=== PATIENT | female | born 1965 ===

== ENCOUNTER → 2020-08-13 09:20 | Outpatient (BNVA) | payer OTHER, SELFPAY | PROVIDERS: PCP Internal Medicine; Referring Provider Internal Medicine; Visit Provider Student in an Organized Health Care Education/Training Program | DX: Z76.89 Persons encountering health services in other specified circumstances (principal) ==

== ENCOUNTER → 2020-12-17 09:28 | Outpatient (BNVA) | payer OTHER, SELFPAY | PROVIDERS: PCP Internal Medicine; Visit Provider Student in an Organized Health Care Education/Training Program ==

== ENCOUNTER → 2021-04-15 09:34 | Outpatient (BNVA) | payer OTHER, SELFPAY | PROVIDERS: PCP Internal Medicine; Visit Provider Student in an Organized Health Care Education/Training Program ==

== ENCOUNTER → 2021-08-12 09:17 | Outpatient (BNVA) | payer OTHER, SELFPAY | PROVIDERS: PCP Internal Medicine; Visit Provider Nurse Practitioner Family ==

== ENCOUNTER → 2021-12-16 09:31 | Outpatient (BNVA) | payer OTHER, SELFPAY | PROVIDERS: PCP Internal Medicine; Visit Provider Nurse Practitioner Family | DX: M05.9 Rheumatoid arthritis with rheumatoid factor, unspecified (principal); Z79.899 Other long term (current) drug therapy | CPT/HCPCS: 99212 ==

== ENCOUNTER → 2022-10-06 10:37 | Outpatient (BNVA) | payer OTHER, SELFPAY | PROVIDERS: PCP Internal Medicine; Visit Provider Nurse Practitioner Family | DX: Z13.89 Encounter for screening for other disorder (principal) ==

== ENCOUNTER → 2023-03-29 10:12 | Outpatient (BNVA) | payer OTHER, SELFPAY | PROVIDERS: PCP Internal Medicine; Visit Provider Internal Medicine Rheumatology | DX: M05.9 Rheumatoid arthritis with rheumatoid factor, unspecified (principal); Z79.899 Other long term (current) drug therapy ==

== ENCOUNTER 2023-08-10 08:24 | Outpatient (AMB) | payer OTHER, SELFPAY ==
--- NOTE | 2023-08-10 08:27 | MHC.OFFVIS ---
Intake Vital Signs 08/10/23 08:30 Height 4 ft 11 in Weight 126 lb 8.725 oz BMI 25.6 BP 102/70 Blood Pressure Location Lt brachial Position Sitting Pulse 70 Pulse Source Pulse Oximeter Pulse Oximetry (%) 97 Oxygen Delivery Method Room Air Intake Visit Reasons: RA Intake Note: Patient presents today to follow up on test results and RA. 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 Accompanied by: Self / Same As Patient Allergies No Known Allergies Allergy (Verified 08/10/23 08:28) Medication List - Last Reconciled 08/10/23 by Gordon Caldwell MD abatacept (Orencia) 125 mg subcut QWEEK betamethasone, augmented 0.05 % 1 appl topical BID clobetasol 0.05% 1 appl topical BID PRN clobetasol 0.05% topical diclofenac sodium 1% (Voltaren) 2 grams topical QID PRN folic acid 1 mg PO DAILY ibuprofen 600 mg PO Q8H PRN methotrexate sodium 10 mg (4 x 2.5 mg) PO QWEEK mometasone 0.1% 1 appl topical DAILY PRN triamcinolone acetonide 0.1% 1 appl topical BID-TID HPI HPI Comments History of Present Illness Details The patient returns for evaluation of her rheumatoid arthritis. She remains on methotrexate 10 mg weekly, folic acid 1 mg daily, and Orencia 125 mg subcutaneously every week. She has a 600 mg ibuprofen available but says she rarely needs it. She reports no problem with the injections. She does not think she has had any side effects with the medications. Joint pain seems controlled without significant pain anywhere. She has limited motion in the right wrist that has been a longstanding issue because of the active disease in the past. She had lab work done at the end of June that was normal. COUNTS INCLUDE 234 BEDS AT THE [facility] Medical History Seropositive rheumatoid arthritis Family History Mother Rheumatoid arthritis Social History Household Members: Spouse Housing: House Alcohol intake: current Alcohol intake frequency: holidays/special occasions only Alcohol type: wine Patient Tobacco Use Status: Never used Tobacco e-Cigarette/Vaping Use: Never Used Review of Systems Const Details: Negative for appetite change, weight change, fever, chills, malaise and fatigue Eyes Details: Negative for vision change, dry eyes,headaches and dizziness ENT Details: Negative for hearing change, tinnitus, oral ulcer, nose bleeds and oral dryness. Card Details: Negative chest pain, edema and syncope Resp Details: Negative for SOB, cough and wheezing GI Details: Negative indigestion/heartburn, nausea, abdominal pain, bowel changes, diarrhea, constipation and bloody stool. Endo Details: Negative for polyuria and polydypsia Neo/Lymph Details: Negative for excessive bruising or bleeding. Physical Exam APPEARANCE: Patient in no acute distress EYES no redness, pupils equal and reactive to light, eyelids normal JOINT EXAM: Cervical Spine:? Full range of motion without pain; no tenderness. Thoracic Spine:? No scoliosis.? No tenderness on palpation. Lumbar Spine:? Alignment normal.? Full range of motion without pain, no tenderness. Hands:? Normal pain-free range of motion. There is some slight swelling at the 3rd MCP in both hands but there is no tenderness. There is no flexor tendon triggering, thenar atrophy or sensory loss in either hand. Wrists:? LEFT: Normal pain-free range of motion without tenderness, swelling, increased warmth or erythema. ? RIGHT: Unable to flex or extend the wrist. Slightly tender with attempts at flexion or with pressure. No swelling, increased warmth or erythema (chronically fused for 20+ years). Elbows: Normal pain-free range of motion without tenderness, swelling, increased warmth or erythema. Shoulders:?? Full range of motion without pain. No tenderness, weakness, swelling, increased warmth or erythema. Hips: Full range of motion without pain. Hip bursa: No tenderness. Knees:?? Normal pain-free range of motion without tenderness, swelling, increased warmth or erythema.? There is no effusion or crepitation Ankles: Normal pain-free range of motion without tenderness, swelling, increased warmth or erythema. Feet: Normal pain-free range of motion with slight 1st MTP bony enlargement but no tenderness, soft tissue swelling, increased warmth or erythema. ? Results Reviewed Results Reviewed: June lab work from [facility] reference labs: White count 6000, hemoglobin 12.6, hematocrit 40.1, creatinine 0.7, AST 19, ALT 9, CRP 0.5 Assessment & Plan Assessment & Plan (1) [facility] (current) use of immunosuppressive biologic: Code(s): Z79.620 - [facility] (current) use of immunosuppressive biologic (2) Seropositive rheumatoid arthritis: Code(s): M05.9 - Rheumatoid arthritis with rheumatoid factor, unspecified Plan Rheumatoid arthritis with good control of synovitis with current treatment. 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 The blood work looks good so we will continue with current dose of methotrexate and Orencia. Lab work would be due again before the next visit in 3-4 months. She was provided with printed lab slips to do at a laboratory closer to her home. Medications: Refilled methotrexate sodium 10 mg (4 x 2.5 mg) PO QWEEK 16 tabs 3RF M05.9 - Rheumatoid arthritis with rheumatoid factor, unspecified Coding Level of Care Code Est Pt Level 3 (00307) Diagnoses [facility] (current) use of immunosuppressive biologic Z79.620 Seropositive rheumatoid arthritis M05.9
[2023-08-10 08:30] VITALS: BP 102/70; PULSE 70; O2SAT 97; BMI 25.6
== END 2023-08-10 08:53 | disposition home or self-care (01) ==
PROVIDERS: PCP Internal Medicine; Visit Provider Internal Medicine Rheumatology
DX: M05.79 Rheumatoid arthritis with rheumatoid factor of multiple sites without organ or systems involvement (principal); Z79.620 Long term (current) use of immunosuppressive biologic; Z79.631 Long term (current) use of antimetabolite agent
CPT/HCPCS: 99213

== ENCOUNTER → 2023-08-10 08:24 | Outpatient (BNVA) | payer OTHER, SELFPAY | PROVIDERS: PCP Internal Medicine; Visit Provider Internal Medicine Rheumatology ==

== ENCOUNTER 2023-12-14 09:51 | Outpatient (AMB) | payer OTHER, SELFPAY ==
[2023-12-14 09:57] VITALS: BP 122/74; PULSE 58; O2SAT 99; BMI 26.2
--- NOTE | 2023-12-14 09:57 | MHC.OFFVIS ---
Intake Vital Signs 12/14/23 09:57 Height 4 ft 11 in Weight 129 lb 13.636 oz BMI 26.2 BP 122/74 Blood Pressure Location Rt brachial Position Sitting Pulse 58 Pulse Source Pulse Oximeter Pulse Oximetry (%) 99 Oxygen Delivery Method Room Air Intake Visit Reasons: ra with Dr. Joel Intake Note: Patient last seen by Dr Caldwell on 08/10/23 presents today for follow up and test results. 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 Accompanied by: Self / Same As Patient Allergies No Known Allergies Allergy (Verified 12/14/23 10:01) Medication List - Last Reconciled 12/14/23 by Alina Gooden MD abatacept (Orencia) 125 mg subcut QWEEK betamethasone, augmented 0.05 % 1 appl topical BID clobetasol 0.05% 1 appl topical BID PRN clobetasol 0.05% topical diclofenac sodium 1% (Voltaren) 2 grams topical QID PRN folic acid 1 mg PO DAILY ibuprofen 600 mg PO Q8H PRN methotrexate sodium 10 mg (4 x 2.5 mg) PO QWEEK mometasone 0.1% 1 appl topical DAILY PRN triamcinolone acetonide 0.1% 1 appl topical BID-TID HPI HPI Comments History of Present Illness Details 58-year-old female with seropositive RA returns for follow-up. This is her 1st visit with me. She was last seen by Dr. Caldwell 07/2023. She states that she is doing quite well overall. Denies any joint pain or swelling. Denies any unintentional weight loss. Denies any cough or shortness of breath. She remains on Orencia 125 mg weekly, methotrexate 10 mg weekly and folic acid 1 mg daily. [facility] Medical History Seropositive rheumatoid arthritis Family History Mother Rheumatoid arthritis Social History Household Members: Spouse Housing: House Alcohol intake: current Alcohol intake frequency: holidays/special occasions only Alcohol type: wine Patient Tobacco Use Status: Never used Tobacco e-Cigarette/Vaping Use: Never Used Review of Systems Const Denies fever(s) and Denies weight loss Card Denies dyspnea Resp Denies cough and Denies dyspnea Musc Denies arthralgias, Denies joint swelling and Denies stiffness Physical Exam Vital Signs: Last Vital Signs Pulse 58 12/14/23 09:57 BP 122/74 12/14/23 09:57 Pulse Ox 99 12/14/23 09:57 Oxygen Delivery Method Room Air 12/14/23 09:57 BMI result Body Mass Index 26.2 Const General: cooperative, healthy appearing and comfortable Nutritional Appearance: overweight Orientation/consciousness: patient oriented x3 Limitations: no limitations HEENT Head: Yes normocephalic and Yes atraumatic Mouth: moist mucous membranes Resp Effort & Inspection: normal respiratory effort and able to speak in complete sentences Auscultation: clear to auscultation bilaterally Cardio Rate: regular rate Rhythm: regular rhythm Skin Other: Dry skin both hands Neuro General: patient oriented x3 Extrem Other: No active synovitis Significantly limited flexion and extension of right wrist but no swelling Assessment & Plan Assessment & Plan (1) Seropositive rheumatoid arthritis: Comment: Onset around 1990 -ve RF ++CCP - methotrexate initially than Humira added 2004 effective DC around 2014 due to psoriasis so Orencia was started in 2014 effective MTX throughout Code(s): M05.9 - Rheumatoid arthritis with rheumatoid factor, unspecified Plan: 58-year-old female with seropositive RA returns for follow-up. This is her 1st visit with me. She used to follow-up with Dr. Caldwell. She is doing quite well with no active synovitis. Inflammatory markers normal. Continue current meds. Orencia 125 mg weekly, methotrexate 10 mg weekly, folic acid 1 mg daily Labs before next visit in 4 months (2) half-way (current) use of immunosuppressive biologic: Code(s): Z79.620 - half-way (current) use of immunosuppressive biologic Plan I spent 30 minutes reviewing patient's chart, evaluating patient, ordering diagnostic workup, counseling patient and documenting in the chart Orders: Orders C Reactive Protein 4 Months M05.9 - Rheumatoid arthritis with rheumatoid factor, unspecified, Z79.620 - half-way (current) use of immunosuppressive biologic, Z79.899 - Other skilled nursing (current) drug therapy Erythrocyte Sedimentation Rate 4 Months M05.9 - Rheumatoid arthritis with rheumatoid factor, unspecified, Z79.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 Panel 4 Months M05.9 - Rheumatoid arthritis with rheumatoid factor, unspecified, Z79.620 - half-way (current) use of immunosuppressive biologic, Z79.899 - Other long term care phlebotomist (current) drug therapy T Spot TB 4 Months Z11.7 - Encounter for testing for latent tuberculosis infection Medications: Refilled methotrexate sodium 10 mg (4 x 2.5 mg) PO QWEEK 16 tabs 3RF M05.9 - Rheumatoid arthritis with rheumatoid factor, unspecified Coding Level of Care Code Est Pt Level 4 (69335) Diagnoses Seropositive rheumatoid arthritis M05.9 half-way (current) use of immunosuppressive biologic Z79.620
== END 2023-12-14 10:28 | disposition home or self-care (01) ==
PROVIDERS: PCP Internal Medicine; Visit Provider Student in an Organized Health Care Education/Training Program
DX: M05.79 Rheumatoid arthritis with rheumatoid factor of multiple sites without organ or systems involvement (principal); Z79.620 Long term (current) use of immunosuppressive biologic
CPT/HCPCS: 99214

== ENCOUNTER → 2023-12-14 09:51 | Outpatient (BNVA) | payer OTHER, SELFPAY | PROVIDERS: PCP Internal Medicine; Visit Provider Student in an Organized Health Care Education/Training Program ==

== ENCOUNTER 2024-04-18 10:06 | Outpatient (AMB) | payer OTHER, SELFPAY ==
--- NOTE | 2024-04-18 10:20 | MHC.OFFVIS ---
Vital Signs 04/18/24 10:24 Height 4 ft 11 in Weight 129 lb 10.109 oz BMI 26.2 BP 124/70 Blood Pressure Location Lt brachial Position Sitting Pulse 59 Pulse Source Pulse Oximeter Pulse Oximetry (%) 99 Oxygen Delivery Method Room Air Intake Visit Reasons: RA/lm Intake Note: Patient last seen on 12/14/2023 present today for follow up and test results. 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 Accompanied by: Self / Same As Patient Allergies No Known Allergies Allergy (Verified 04/18/24 10:25) Medication List - Last Reconciled 04/18/24 by Alina Gooden MD betamethasone, augmented 0.05 % 1 appl topical BID clobetasol 0.05% 1 appl topical BID PRN clobetasol 0.05% topical diclofenac sodium 1% (Voltaren) 2 grams topical QID PRN folic acid 1 mg PO DAILY ibuprofen 600 mg PO Q8H PRN methotrexate sodium 10 mg (4 x 2.5 mg) PO QWEEK mometasone 0.1% 1 appl topical DAILY PRN Orencia (abatacept) 125 mg subcut QWEEK NS triamcinolone acetonide 0.1% 1 appl topical BID-TID HPI Comments Details: 59-year-old female with seropositive RA returns for follow-up. She states that she is doing quite well overall. Denies any joint pain or swelling. Denies any unintentional weight loss. No recent infections. Denies any cough or shortness of breath. She remains on Orencia 125 mg weekly, methotrexate 10 mg weekly and folic acid 1 mg daily. [facility] Medical History Seropositive rheumatoid arthritis Family History Mother Rheumatoid arthritis Social History Household Members: Spouse Housing: House Alcohol intake: current Alcohol intake frequency: holidays/special occasions only Alcohol type: wine Patient Tobacco Use Status: Never used Tobacco e-Cigarette/Vaping Use: Never Used Review of Systems Const Denies fever(s) and Denies weight loss Card Denies dyspnea Resp Denies cough and Denies dyspnea Musc Denies arthralgias, Denies joint swelling and Denies stiffness Physical Exam Vital Signs: Last Vital Signs Pulse 59 04/18/24 10:24 BP 124/70 04/18/24 10:24 Pulse Ox 99 04/18/24 10:24 Oxygen Delivery Method Room Air 04/18/24 10:24 BMI result Body Mass Index 26.2 Const General: cooperative, healthy appearing and comfortable Nutritional Appearance: overweight Orientation/consciousness: patient oriented x3 Limitations: no limitations HEENT Head: Yes normocephalic and Yes atraumatic Mouth: moist mucous membranes Resp Effort & Inspection: normal respiratory effort and able to speak in complete sentences Auscultation: clear to auscultation bilaterally Cardio Rate: regular rate Rhythm: regular rhythm Skin Other: Dry skin both hands Neuro General: patient oriented x3 Extrem Other: No active synovitis Significantly limited flexion and extension of right wrist but no swelling Assessment & Plan Assessment & Plan (1) Seropositive rheumatoid arthritis: Comment: Onset around 1990 -ve RF ++CCP - methotrexate initially than Humira added 2004 effective DC around 2014 due to psoriasis so Orencia was started in 2014 effective MTX throughout Code(s): M05.9 - Rheumatoid arthritis with rheumatoid factor, unspecified Category: Medical Plan: 59-year-old female with seropositive RA returns for follow-up. She is doing quite well with no active synovitis. Continue current meds. Orencia 125 mg weekly, methotrexate 10 mg weekly, folic acid 1 mg daily. Patient did blood work last week but it has not been sent to us. 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
[2024-04-18 10:24] VITALS: BP 124/70; PULSE 59; O2SAT 99; BMI 26.2
== END 2024-04-18 10:54 | disposition home or self-care (01) ==
PROVIDERS: PCP Internal Medicine; Visit Provider Student in an Organized Health Care Education/Training Program
DX: M05.79 Rheumatoid arthritis with rheumatoid factor of multiple sites without organ or systems involvement (principal); Z79.620 Long term (current) use of immunosuppressive biologic
CPT/HCPCS: 99214

== ENCOUNTER → 2024-04-18 10:06 | Outpatient (BNVA) | payer OTHER, SELFPAY | PROVIDERS: PCP Internal Medicine; Visit Provider Student in an Organized Health Care Education/Training Program ==

== ENCOUNTER 2024-09-18 10:21 | Outpatient (AMB) | payer OTHER, SELFPAY ==
--- NOTE | 2024-09-18 10:25 | MHC.OFFVIS ---
Vital Signs 09/18/24 10:29 Height 4 ft 11 in Weight 131 lb 2.801 oz BMI 26.5 BP 132/74 Blood Pressure Location Lt brachial Position Sitting Respiration 16 Pulse 67 Pulse Source Pulse Oximeter Pulse Oximetry (%) 98 Oxygen Delivery Method Room Air Intake Visit Reasons: RA Intake Note: Patient presents for RA. Allergies No Known Allergies Allergy (Verified 09/18/24 10:27) Medication List - Last Reconciled 09/18/24 by Alina Gooden MD abatacept (Orencia) 125 mg subcut QWEEK betamethasone, augmented 0.05 % 1 appl topical BID clobetasol 0.05% 1 appl topical BID PRN clobetasol 0.05% topical diclofenac sodium 1% (Voltaren) 2 grams topical QID PRN folic acid 1 mg PO DAILY ibuprofen 600 mg PO Q8H PRN methotrexate sodium 10 mg (4 x 2.5 mg) PO QWEEK mometasone 0.1% 1 appl topical DAILY PRN triamcinolone acetonide 0.1% 1 appl topical BID-TID HPI Comments Details: 59-year-old female with seropositive RA returns for follow-up. Back in June she cut her right index, can you went to the emergency room, she ended up needing surgery, her finger is still in a splint. She states that other than that she is doing quite well overall. Denies any joint pain or swelling. Denies any unintentional weight loss. No recent infections. Denies any cough or shortness of breath. She remains on Orencia 125 mg weekly, methotrexate 10 mg weekly and folic acid 1 mg daily. [facility] Medical History Seropositive rheumatoid arthritis Family History Mother Rheumatoid arthritis Social History Household Members: Spouse Housing: House Alcohol intake: current Alcohol intake frequency: holidays/special occasions only Alcohol type: wine Patient Tobacco Use Status: Never used Tobacco e-Cigarette/Vaping Use: Never Used Review of Systems Const Denies fever(s) and Denies weight loss Card Denies dyspnea Resp Denies cough and Denies dyspnea Musc Denies arthralgias, Denies joint swelling and Denies stiffness Physical Exam Vital Signs: Last Vital Signs Pulse 67 09/18/24 10:29 Resp 16 09/18/24 10:29 BP 132/74 09/18/24 10:29 Pulse Ox 98 09/18/24 10:29 Oxygen Delivery Method Room Air 09/18/24 10:29 BMI result Body Mass Index 26.5 Const General: cooperative, healthy appearing and comfortable Nutritional Appearance: overweight Orientation/consciousness: patient oriented x3 Limitations: no limitations HEENT Head: Yes normocephalic and Yes atraumatic Mouth: moist mucous membranes Resp Effort & Inspection: normal respiratory effort and able to speak in complete sentences Auscultation: clear to auscultation bilaterally Cardio Rate: regular rate Rhythm: regular rhythm Neuro General: patient oriented x3 Extrem Other: No active synovitis Significantly limited flexion and extension of right wrist but no swelling Assessment & Plan Assessment & Plan (1) Seropositive rheumatoid arthritis: Comment: Onset around 1990 -ve RF ++CCP - methotrexate initially than Humira added 2004 effective DC around 2014 due to psoriasis so Orencia was started in 2014 effective MTX throughout Code(s): M05.9 - Rheumatoid arthritis with rheumatoid factor, unspecified Category: Medical Plan: 59-year-old female with seropositive RA returns for follow-up. She is doing quite well with no active synovitis. Continue current meds. Orencia 125 mg weekly, methotrexate 10 mg weekly, folic acid 1 mg daily. 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 Patient fully aware. Advised patient to seek medical care [facility] if patient has an infection and advised patient to stop the medication until the infection is resolved. 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 C Reactive Protein 4 Months M05.9 - Rheumatoid arthritis with rheumatoid factor, unspecified, Z79.620 - retirement (current) use of immunosuppressive biologic Erythrocyte Sedimentation Rate 4 Months M05.9 - Rheumatoid arthritis with rheumatoid factor, unspecified, Z79.620 - retirement (current) use of immunosuppressive biologic Medications: Refilled methotrexate sodium 10 mg (4 x 2.5 mg) PO QWEEK 64 tabs 0RF M05.9 - Rheumatoid arthritis with rheumatoid factor, unspecified Coding Level of Care Code Est Pt Level 4 (36757) Complex EM visit Add On G2211 Diagnoses Seropositive rheumatoid arthritis M05.9 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
[2024-09-18 10:29] VITALS: BP 132/74; PULSE 67; RESP 16; O2SAT 98; BMI 26.5
== END 2024-09-18 10:46 | disposition home or self-care (01) ==
PROVIDERS: PCP Internal Medicine; Visit Provider Student in an Organized Health Care Education/Training Program
DX: M05.79 Rheumatoid arthritis with rheumatoid factor of multiple sites without organ or systems involvement (principal); Z79.620 Long term (current) use of immunosuppressive biologic
CPT/HCPCS: 99214

== ENCOUNTER 2025-01-16 12:54 | Outpatient (AMB) | payer OTHER, SELFPAY ==
[2025-01-16 13:25] VITALS: BP 130/70; PULSE 69; O2SAT 100; BMI 27.1
--- NOTE | 2025-01-16 13:25 | A.OFFVIS_ITS ---
Vital Signs 01/16/25 13:25 Height 4 ft 11 in Weight 134 lb 0.657 oz BMI 27.1 BP 130/70 Blood Pressure Location Lt brachial Position Sitting Pulse 69 Pulse Source Pulse Oximeter Pulse Oximetry (%) 100 Oxygen Delivery Method Room Air Intake Visit Reasons: RA Intake Note: Patient presents for follow up on ra and lab review. Allergies No Known Allergies Allergy (Verified 01/16/25 13:30) Medication List - Last Reconciled 01/16/25 by Nadira Eng MD abatacept (Orencia) 125 mg subcut QWEEK betamethasone, augmented 0.05 % 1 appl topical BID clobetasol 0.05% 1 appl topical BID PRN clobetasol 0.05% topical diclofenac sodium 1% (Voltaren) 2 grams topical QID PRN folic acid 1 mg PO DAILY ibuprofen 600 mg PO Q8H PRN methotrexate sodium 10 mg (4 x 2.5 mg) PO QWEEK mometasone 0.1% 1 appl topical DAILY PRN triamcinolone acetonide 0.1% 1 appl topical BID-TID HPI Comments Details: Patient is a 59 y.o. female with HLD, anxiety disorder and seropositive RA here today for follow up Interval History: Patient last seen 09/18/[address] Gooden. At that time she was following up for her rheumatoid arthritis. RA was in remission on Orencia 125 weekly and methotrexate 10 mg weekly Today, Patient continues to report good disease control on her medications Rheumatologic History: Onset around 1990 -ve RF ++CCP - methotrexate initially than Humira added 2004 effective DC around 2014 due to psoriasis so Orencia was started in 2014 effective MTX throughout Current Rheumatology Medication(s): Orencia 125 mg sc every week Methotrexate 10 mg weekly new line folic acid 1 mg daily PFSH Medical History Seropositive rheumatoid arthritis Family History Mother Rheumatoid arthritis Social History Household Members: Spouse Housing: House Alcohol intake: current Alcohol intake frequency: holidays/special occasions only Alcohol type: wine Patient Tobacco Use Status: Never used Tobacco e-Cigarette/Vaping Use: Never Used Review of Systems Const Details: Review of Systems Constitutional: Denies fever, chills, weight loss ENT: Denies vision changes, eye pain or eye redness, dental caries, dry mouth GI: Denies nausea, vomiting, diarrhea, abdominal pain, change in BM Pulm: Denies SOB, MCALLISTER, hemoptysis, wheezing Cards: Denies chest pain, palpitations Skin: Denies Raynaud's, rash, nail changes, photosensitivity, 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 Well appearing and in no apparent painful distress HEENT Conjunctiva and sclera clear. ?Pupils equal round and reactive to light. ?No lymphadenopathy. ? CHEST/RESPIRATORY SYSTEM Normal respiratory effort and able to speak in complete sentences. ?Clear to auscultation bilaterally. ?No crackles, rales, rhonchi, wheezes heard. CARDIAC SYSTEM Regular rate and rhythm. ?S1 and S2 heard no murmurs. ?Radial pulses intact bilaterally MSK Hands: ?Able to make a fist. No synovitis noted to the MCPs, PIPs or DIPs. ?No tenderness to palpation of these joints. [place] nodes? Wrists: ?Full range of motion at the wrists without pain. ?No tenderness to palpation or synovitis noted to the wrists. Elbows: Full range of motion without pain. No tenderness, weakness, swelling, increased warmth or erythema. Shoulders: Full range of active range of motion without pain. No tenderness, weakness, swelling, increased warmth or erythema. Knees: ?Full range of motion. ?No tenderness, swelling, increased warmth or erythema.?No effusion or crepitations Ankles: Full range of motion. ?No tenderness, swelling, increased warmth or erythema.? Feet: ?Negative squeeze test. ?No tenderness to palpation or swelling of the MTPs. Tender points:?No tenderness to palpation of the bilateral trapezius, supraspinatus, greater trochanters, anterior costochondral junctions, bilateral gluteal areas, bilateral suboccipital muscle insertions SKIN Skin intact without rashes. Results Reviewed Results Reviewed: [facility] results reviewed ESR 60 CRP 2 AST/ALT 21/11 Creatinine 0.54 EGFR 105 Hemoglobin 13.3 WBC 7.1 Platelets 278 Assessment & Plan Assessment & Plan (1) Seropositive rheumatoid arthritis: Comment: Onset around 1990 -ve RF ++CCP - methotrexate initially than Humira added 2004 effective DC around 2014 due to psoriasis so Orencia was started in 2014 effective MTX throughout Code(s): M05.9 - Rheumatoid arthritis with rheumatoid factor, unspecified Category: Medical Plan: #Seropositive RA Patient is a 59-year-old female with seropositive rheumatoid arthritis here today for follow up. 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 Limit alcohol and avoid Bactrim ? Monitoring: ?CBC, BMP, LFTs every 3-4 months and hepatitis serologies as nee ded (3) On abatacept therapy: Code(s): Z79.899 - Other manager intermediate (current) drug therapy Plan: #Long-term Use of Abatacept Discussed with the patient the benefits and risks of Abatacept for the management of the rheumatic condition Benefits include reduce pain, maintenance of remission and reduction of flares as well as ?progression of the disease Risks include injection sites/infusion reactions, serious infections (such as bacterial infections, opportunistic infections), malignancy Recommended rotating injection sites, and holding medication during and for up to 1 week after resolution of a febrile illness or open skin wound Plan I spent 30 minutes reviewing the record and labs, taking a history, examining the patient, discussing the treatment plan, ordering diagnostic work up and documenting in the medical record Orders: Orders Complete Blood Count Auto Diff 4 Months M05.9 - Rheumatoid arthritis with rh eumatoid factor, unspecified Comprehensive Met. Panel 4 Months M05.9 - Rheumatoid arthritis with rheumatoid factor, unspecified Erythrocyte Sedimentation Rate 4 Months M05.9 - Rheumatoid arthritis with rheumatoid factor, unspecified T Spot TB 4 Months M05.9 - Rheumatoid arthritis with rheumatoid factor, unspecified C Reactive Protein 4 Months M05.9 - Rheumatoid arthritis with rheumatoid factor, unspecified Hepatitis A,B,C Profile 4 Months M05.9 - Rheumatoid arthritis with rheumatoid factor, unspecified Medications: Changed From methotrexate sodium 10 mg (4 x 2.5 mg) PO QWEEK 64 tabs 0RF M05.9 - Rheumatoid arthritis with rheumatoid factor, unspecified To methotrexate sodium 10 mg (4 x 2.5 mg) PO QWEEK 90 days 52 tabs 1RF M05.9 - Rheumatoid arthritis with rheumatoid factor, unspecified Refilled abatacept (Orencia) 125 mg subcut QWEEK 4 mL 5RF M05.9 - Rheumatoid arthritis with rheumatoid factor, unspecified folic acid 1 mg PO DAILY 90 tabs 1RF Coding Level of Care Code Est Pt Level 4 (83050) Complex EM visit Add On G2211 Diagnoses Seropositive rheumatoid arthritis 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
== END 2025-01-16 14:07 | disposition home or self-care (01) ==
LOC: HO.RHE 12:55
PROVIDERS: PCP Internal Medicine; Visit Provider Student in an Organized Health Care Education/Training Program
DX: M05.79 Rheumatoid arthritis with rheumatoid factor of multiple sites without organ or systems involvement (principal); Z79.899 Other long term (current) drug therapy
CPT/HCPCS: 99214

== ENCOUNTER 2025-05-29 11:26 | Outpatient (AMB) | payer OTHER, SELFPAY ==
--- NOTE | 2025-05-29 11:29 | MHC.OFFVIS ---
Vital Signs 05/29/25 11:30 Height 4 ft 11 in Weight 132 lb 4.438 oz BMI 26.7 BP 130/82 Blood Pressure Location Lt brachial Position Sitting Pulse 66 Pulse Source Pulse Oximeter Pulse Oximetry (%) 97 Oxygen Delivery Method Room Air Intake Visit Reasons: RA Intake Note: Patient presents for RA follow up. Allergies No Known Allergies Allergy (Verified 05/29/25 11:35) Medication List - Last Reconciled 05/29/25 by Nadira Eng MD abatacept (Orencia) 125 mg subcut QWEEK betamethasone, augmented 0.05 % 1 appl topical BID clobetasol 0.05% 1 appl topical BID PRN clobetasol 0.05% topical diclofenac sodium 1% (Voltaren) 2 grams topical QID PRN folic acid 1 mg PO DAILY ibuprofen 600 mg PO Q8H PRN methotrexate sodium 10 mg (4 x 2.5 mg) PO QWEEK 90 days mometasone 0.1% 1 appl topical DAILY PRN triamcinolone acetonide 0.1% 1 appl topical BID-TID HPI Comments Details: Patient is a 60 y.o. female with HLD, anxiety disorder and seropositive RA here today for follow up Interval History: Patient last seen 01/16/25 with me - Orencia 125mg SC every week and Methotrexate 10mg PO weekly, folic acid 1mg - Good disease control on her medications Today - Orencia 125mg SC every week and Methotrexate 10mg PO weekly, folic acid 1mg Rheumatologic History: Onset around 1990 -ve RF ++CCP - methotrexate initially than Humira added 2004 effective DC around 2014 due to psoriasis so Orencia was started in 2014 effective MTX throughout Current Rheumatology Medication(s): Orencia 125 mg sc every week Methotrexate 10 mg weekly new line folic acid 1 mg daily PFSH Medical History Seropositive rheumatoid arthritis Family History Mother Rheumatoid arthritis Social History Household Members: Spouse Housing: House Alcohol intake: current Alcohol intake frequency: holidays/special occasions only Alcohol type: wine Patient Tobacco Use Status: Never used Tobacco e-Cigarette/Vaping Use: Never Used Review of Systems Const Details: Review of Systems Constitutional: Denies fever, chills, weight loss ENT: Denies vision changes, eye pain or eye redness, dental caries, dry mouth GI: Denies nausea, vomiting, diarrhea, abdominal pain, change in BM Pulm: Denies SOB, MCALLISTER, hemoptysis, wheezing Cards: Denies chest pain, palpitations Skin: Denies Raynaud's, rash, nail changes, photosensitivity, 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 Well appearing and in no apparent painful distress MSK Hands Right Hand: Able to make a fist. No swelling or tenderness to palpation of the MCPs, PIPs or DIPs. Left Hand: Able to make a fist. No swelling or tenderness to palpation of the MCPs, PIPs or DIPs. [place] nodes noted bilaterally with deformity Wrists Right Wrist: Fixed wrist. No swelling or TTP Left Wrist: Full ROM to flexion and extension. No swelling or TTP Elbows Right Elbow: Full ROM. No swelling or TTP. No TTP of the medial epicondyle. No TTP of the lateral epicondyle Left Elbow: Full ROM. No swelling or TTP. No TTP of the medial epicondyle. No TTP of the lateral epicondyle Shoulders Right shoulder: Full ROM. No swelling noted. No TTP of the AC joint. No TTP of the subacromial bursa. No TTP of the posterior shoulder Left shoulder: Full ROM. No swelling noted. No TTP of the AC joint. No TTP of the subacromial bursa. No TTP of the posterior shoulder Knees Right knee: Full ROM. No swelling noted. No TTP of the knee joint line. No TTP of pes anserine bursa Left knee: Full ROM. No swelling noted. No TTP of the knee joint line. No TTP of pes anserine bursa. Crepitations felt bilaterally Ankles Right ankle: Good ankle dorsiflexion and plantar flexion. No swelling. No TTP of the ankle joint Left ankle: Good ankle dorsiflexion and plantar flexion. No swelling. No TTP of the ankle joint Feet Right foot: Negative squeeze test Left foot: Negative squeeze test Tender points? No tenderness to palpation of the bilateral trapezius, supraspinatus, anterior costochondral junctions, bilateral suboccipital muscle insertions SKIN Rash over the 3rd MCP of right hand ?PsO Vital Signs: Last Vital Signs Pulse 66 05/29/25 11:30 BP 130/82 05/29/25 11:30 Pulse Ox 97 05/29/25 11:30 Oxygen Delivery Method Room Air 05/29/25 11:30 BMI result Body Mass Index 26.7 Results Reviewed Results Reviewed: 05/21/25 Lab [facility] WBC 6.4 Hb 12.6 Plt 238 BUN 20 Cr 0.79 eGFR 85 AST 19 ALT 9 ESR 14 CRP 3 T spot negative HCV negative HBV negative Assessment & Plan Assessment & Plan (1) Seropositive rheumatoid arthritis: Comment: Onset around 1990 -ve RF ++CCP - methotrexate initially than Humira added 2004 effective DC around 2014 due to psoriasis so Orencia was started in 2014 effective MTX throughout Code(s): M05.9 - Rheumatoid arthritis with rheumatoid factor, unspecified Category: Medical Plan: #Seropositive RA Patient is a 60-year-old female with seropositive rheumatoid arthritis here today for follow up. Currently in remission of disease Will stop methotrexate and reevaluate in 4 months Plan - Abatacept 125mg SC weekly - Stop mtx and folic acid - RTC 4 months - Labs before visit: CBC, CMP, ESR, CRP (2) On abatacept therapy: Code(s): Z79.899 - Other exterminator helper termite (current) drug therapy Plan: #Long-term Use of Abatacept Discussed with the patient the benefits and risks of Abatacept for the management of the rheumatic condition Benefits include reduce pain, maintenance of remission and reduction of flares as well as ?progression of the disease Risks include injection sites/infusion reactions, serious infections (such as bacterial infections, opportunistic infections), malignancy Recommended rotating injection sites, and holding medication during and for up to 1 week after resolution of a febrile illness or open skin wound Plan I spent 25 minutes reviewing the record and labs, taking a history, examining the patient, discussing the treatment plan, ordering diagnostic work up and documenting in the medical record Orders: Orders Comprehensive Met. Panel 4 Months Z79.899 - Other shelter (current) drug therapy C Reactive Protein 4 Months Z79.899 - Other exterminator helper termite (current) drug therapy Complete Blood Count Auto Diff 4 Months Z79.899 - Other shelter (current) drug therapy Erythrocyte Sedimentation Rate 4 Months Z79.89 - Other shelter (current) drug therapy Medications: Refilled abatacept (Orencia) 125 mg subcut QWEEK 4 mL 5RF M05.9 - Rheumatoid arthritis with rheumatoid factor, unspecified Discontinued methotrexate sodium Discontinued Reason: Doctor's Order 10 mg (4 x 2.5 mg) PO QWEEK 90 days 52 tabs 1RF M05.9 - Rheumatoid arthritis with rheumatoid factor, unspecified folic acid Discontinued Reason: Doctor's Order 1 mg PO DAILY 90 tabs 1RF Coding Level of Care Code Est Pt Level 3 (28650) Complex EM visit Add On G2211 Diagnoses Seropositive rheumatoid arthritis M05.9 On abatacept therapy Z79.899
[2025-05-29 11:30] VITALS: BP 130/82; PULSE 66; O2SAT 97; BMI 26.7
== END 2025-05-29 12:01 | disposition home or self-care (01) ==
LOC: HO.RHES 11:26
PROVIDERS: PCP Internal Medicine; Visit Provider Student in an Organized Health Care Education/Training Program
DX: M05.9 Rheumatoid arthritis with rheumatoid factor, unspecified (principal); Z79.899 Other long term (current) drug therapy
CPT/HCPCS: 99213; G2211